=== PATIENT | male | born 1995 | race Caucasian/White ===

== ENCOUNTER 2017-12-19 15:13 | Emergency (ER) | payer OTHER ==
[2017-12-19] MEDS ORDERED: NS 0.9% 1000 ML* 1,000 ML IV ONE ×2 (15:52→17:05)
[2017-12-19] MEDS ORDERED: Ketorolac INJ* 30 MG/ML 1 ML VIAL IV PUSH ONE (15:52)
[2017-12-19] MEDS ORDERED: Ondansetron INJ* 2 MG/ML VIAL IV ONE (15:52)
--- NOTE | 2017-12-19 16:07 | ED ---
Abdominal Pain/Male - HPI Summary HPI Summary: This is scrgeo Teeliza Layton documenting for attending Clinton Marc MD. This patient is a 22 year old M presenting to [facility] with a chief complaint of mild diffuse ABD discomfort and mild left testicle discomfort since yesterday rated at about 1/10 in severity. Pt has had persistent nausea and pain since yesterday and wanted to come to the ED to make sure hes okay. He denies dehydration, hematuria, swelling, and discoloration. 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 He hasnt eaten much today , but had cereal and large pb&j sandwich this morning. He also has sprained left wrist from longboarding accident. Pt denies unprotected sexual activity in the last couple month and all sexual activity for the last 3 weeks. - History of Current Complaint Chief Complaint: EDAbdPain Stated Complaint: ABD PAIN Time Seen by Provider: 12/19/17 15:51 Hx Obtained From: Patient Onset/Duration: Lasting Days - began yesterday, constant to today Timing: Constant, Lasting Days Severity Initially: Mild Severity Currently: Mild Pain Intensity: 1 Pain Scale Used: 0-10 Numeric Location: Diffuse Radiates: No Character: Dull Associated Signs And Symptoms: Positive: Negative - dehydration, hematuria, swelling, discoloration, Nausea - Allergies/Home Medications Allergies/Adverse Reactions: Allergies Allergy/AdvReac Type Severity Reaction Status Date / Time Iodinated Contrast- Oral and Allergy See Comment Verified 12/19/17 15:59 IV Dye Hpitkrl-Mhx-Cwv Reductase Allergy Rash Verified 12/19/17 15:59 Inhibitor Home Medications: Home Medications NK [No Home Medications Reported] 12/19/17 [History Confirmed 12/19/17] PMH/Surg Hx/FS Hx/Imm Hx Endocrine/Hematology History: Denies: Hx Diabetes Cardiovascular History: Denies: Hx Hypertension, Hx Pacemaker/ICD History: Denies: Hx Renal Disease Sensory History: Denies: Hx Hearing Aid Psychiatric History: Denies: Hx Panic Disorder - Surgical History Surgery Procedure, Year, and Place: LOW ABD - FOR SCLEROSED 04/2015 - Lt VARICOCELE EMBOLIZATION W/ COILING - TOTAL OF 6 BLOCKADE MEDICAL [place] COILS - MR CONDITIONAL FOR 3T OR LESS, W/ MAX SPATIAL GRADIENT 4000Gauss/cm OR LESS. Infectious Disease History: No Infectious Disease History: Denies: Traveled Outside the [place] in Last 30 Days - Family History Known Family History: Positive: Diabetes - both sides of family - Social History Occupation: Student Alcohol Use: Occasionally Substance Use Type: Reports: Marijuana Smoking Status (MU): Never Smoked Tobacco - Additional Comments History Additional Comments: Pt has not had sex without a condom in a few months, and has not had sex with anyone in about 3 weeks. Review of Systems Constitutional: Negative - dehydration Positive: Abdominal Pain, Nausea Genitourinary: Negative - swelling, discoloration Positive: other - L testicle pain. Negative: hematuria Musculoskeletal: Other - L wrist mildly sprained from previous longboarding accident All Other Systems Reviewed And Are Negative: Yes Physical Exam - Summary Physical Exam Summary: Appearance: Well appearing, no pain distress Skin: warm, dry, reflects adequate perfusion Head/face: normal Eyes: EOMI, JUSTO ENT: normal Neck: supple, non-tender Respiratory: CTA, breath sounds present Cardiovascular: RRR, pulses symmetrical Abdomen: non-tender, soft Bowel: present Musculoskeletal: strength/ROM intact, left wrist brace to relieve pain from previous longboarding accident Neuro: normal, sensory motor intact, A&Ox3 : No hernia, no epididymal tenderness, no masses, normal. cremaster reflex is normal. No lesions Triage Information Reviewed: Yes Vital Signs On Initial Exam: Initial Vitals Temp Pulse Resp BP Pulse Ox 99.0 F 58 16 132/87 97 12/19/17 15:22 12/19/17 15:22 12/19/17 15:22 12/19/17 15:22 12/19/17 15:22 Vital Signs Reviewed: Yes Diagnostics - Vital Signs Vital Signs Temp Pulse Resp BP Pulse Ox 12/19/17 15:22 99.0 F 58 16 132/87 97 - Laboratory Result Diagrams: 12/19/17 16:07 12/19/17 16:07 Lab Statement: Any lab studies that have been ordered have been reviewed, and results considered in the medical decision making process. - Ultrasound No standard instances Ultrasound Interpretation: No Acute Changes - Testicular ultrasound shows that no intratesticular masses are noted. Ultrasound Interpretation Completed By: Radiologist - Testicular ultrasound Re-Evaluation - Re-Evaluation First Re-Eval Re-Evaluation Time: 17:10 Change: Improved Comment: Pt reports that he works at a [employer] during the week and has had more fatigue than usual during work. Abdominal Pain Fem Course/Dx - Course Course Of Treatment: Patient with mild discomfort in his abdomen and testicles. There is 1+ blood but the urine dip is not positive for blood. His CPK is only 101. I presume that his creatinine is elevated over baseline. 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 I hydrated him with 2 bags of fluid and he was feeling much improved. He will follow-up with [facility] this week for recheck of his creatinine and will be off work for the next several days. - Diagnoses Differential Diagnosis/HQI/PQRI: Other - Epididymitis, UTI, kidney stone, dehydration, rhabdomyolysis, varicocele Provider Diagnoses: Dehydration, Varicocele Discharge - Sign-Out/Discharge Documenting (check all that apply): Patient Departure - Discharge Plan Condition: Improved Disposition: HOME Patient Education Materials: Dehydration (ED), Varicocele (ED) Forms: *Work Release Referrals: Ken Landrum DO [Primary Care Provider] - Additional Instructions: Stay well-hydrated. Avoid the sun and exertional activity for several days. Follow-up with [facility] to have your kidney function checked this week. - Billing Disposition and Condition Condition: IMPROVED Disposition: Home
[2017-12-19 16:17] LABS: ABS Basophils 0 10^3/ul (0-0.2); ABS Eosinophils 0.1 10^3/ul (0-0.6); ABS Lymphocytes 1.7 10^3/ul (1.0-4.8); ABS Monocytes 0.5 10^3/ul (0-0.8); ABS Neutrophils 3.3 10^3/ul (1.5-7.7); ABS Nucleated RBC 0 10^3/ul; Eosinophil % 1.1 % (0-6); Hematocrit 43 % (42-52); Hemoglobin 14.8 g/dl (14.0-18.0); Lymphocyte % 31.2 % (25-47); Mean Corpuscular HGB Conc 35 g/dl (31-36); Mean Corpuscular Hemoglobin 31 pg (27-31); Mean Corpuscular Volume 90 fL (80-94); Mean Platelet Volume 7.7 um3 (7.4-10.4); Nucleated Red Blood Cells % 0.1; Platelet Count 210 10^3/ul (150-450); Red Blood Count 4.72 10^6/ul (4.00-5.40); Red Cell Distribution Width 13 % (10.5-15); White Blood Count 5.6 10^3/ul (3.5-10.8)
[2017-12-19 16:32] LABS: EGFR Non-African American 71.6 (>60)
[2017-12-19 16:58] LABS: Urine Appearance Clear; Urine Blood Negative (Negative); Urine Color Yellow; Urine Ketones Negative (Negative); Urine Protein 1+(30 mg/dL) (Negative); Urine Red Blood Cell 1+(3-5/hpf) (Absent); Urine Specific Gravity 1.028 (1.010-1.030); Urine Urobilinogen Negative (Negative); Urine White Blood Cell Trace(0-5/hpf) (Absent)
--- NOTE | 2017-12-19 17:19 | RAD ---
Indication: Left scrotal pain. Real-time sonography of the scrotum was performed. The right testis measures 4.6 x 2.7 x 3.3 cm. Epididymis measures 0.9 x 1.1 cm. No intratesticular masses are noted. Doppler interrogation demonstrates flow in the right testes. The left testis measures 4.4 x 2.5 x 2.9 cm. No intratesticular masses are noted. Doppler interrogation demonstrates flow in left testis. Epididymis measures 0.9 x 1.3 cm. No hydrocele is noted. Bilateral varicoceles are noted. IMPRESSION: No intratesticular masses are noted.
[2017-12-19 17:52] VITALS: BP 125/79
== END 2017-12-19 17:50 | disposition home or self-care (01) ==
LOC: ED 15:13
DX: E86.0 Dehydration (principal); I86.1 Scrotal varices; Z88.8 Allergy status to other drugs, medicaments and biological substances; Z91.041 Radiographic dye allergy status
CPT/HCPCS: 36415; 76870; 80048; 81003; 81015; 82550; 85025; 87086; 87491; 87591; 96374; 96375; 99282; J1885; J2405